=== PATIENT | male | born 1955 | race Caucasian/White ===

== ENCOUNTER 2021-12-19 08:22 | Outpatient (CLI) | payer OTHER ==
[~2021-12-19 08:22] MED LIST: MULTI-DAY1 TAB PO
== END 2021-12-19 08:48 | disposition home or self-care (01) ==
LOC: TOM 08:22
DX: M25.511 Pain in right shoulder (principal)

== ENCOUNTER 2021-12-20 15:40 | Outpatient (CLI) | payer OTHER | END 2021-12-20 15:48 | disposition home or self-care (01) | LOC: RAD 15:40 | PROVIDERS: ATTEND Orthopaedic Surgery Hand Surgery | DX: S42.031A Displaced fracture of lateral end of right clavicle, initial encounter for closed fracture (principal) ==

== ENCOUNTER 2022-03-07 07:44 | Outpatient (CLI) | payer OTHER | END 2022-03-07 07:49 | disposition home or self-care (01) | LOC: RAD 07:44 | PROVIDERS: ATTEND Orthopaedic Surgery Hand Surgery | DX: S42.017A Nondisplaced fracture of sternal end of right clavicle, initial encounter for closed fracture (principal) ==

== ENCOUNTER 2022-12-18 07:07 | Outpatient (CLI) | payer OTHER ==
[~2022-12-18 07:07] MED LIST changes: +NORFLEX100MG PO
== END 2022-12-18 07:16 | disposition home or self-care (01) ==
LOC: SONOGRAMA 07:07
PROVIDERS: ATTEND Family Medicine
DX: R10.10 Upper abdominal pain, unspecified (principal)